=== PATIENT | male | born 1950 | race Caucasian/White ===

== ENCOUNTER 2020-05-30 12:34 | Observation (INO) ==
[2020-05-30] MEDS ORDERED: Naloxone 0.4 MG/ML INJ IVP PRN ×2 (15:34→16:28)
[2020-05-30 15:58] LABS: Basophils # 0.1 K/mcL (0.0-0.2); Basophils % 0.6 %; Eosinophils # 0.4 K/mcL (0.0-0.6); Eosinophils % 4.3 %; Hematocrit 31.2 % (37.5-50.1); Hemoglobin 9.9 g/dL (12.9-16.9); Immature Granulocytes % 0.2 % (0-4); Lymphocytes # 1.6 K/mcL (0.6-4.6); Lymphocytes % 19.7 %; Mean Corpuscular HGB Conc 31.7 g/dL (31.6-35.5); Mean Corpuscular Volume 91.5 fL (83.0-100.0); Mean Platelet Volume 9.2 fL (9.4-12.4); Monocytes # 0.7 K/mcL (0.0-1.3); Monocytes % 8.4 %; Neutrophils # 5.4 K/mcL (1.6-8.9); Platelet Count 254 K/mcL (140-400); Red Blood Count 3.41 M/mcL (4.19-5.50); Red Cell Distribution Width 13.3 % (11.5-14.5); Segmented Neutrophils % 66.8 %; White Blood Count 8.1 K/mcL (4.3-11.1)
[2020-05-30 16:02] LABS: INR 1.2
[2020-05-30] MEDS ORDERED: Ondansetron 4 MG/2 ML VIAL IVP PRN (16:28)
[2020-05-30 16:31] LABS: BUN/Creatinine Ratio 23 (6-26); Blood Urea Nitrogen 28 mg/dL (8-23); Calcium 9.9 mg/dL (8.6-10.3); Carbon Dioxide 20 mEq/L (23-29); Chloride 111 mEq/L (98-107); Glucose 100 mg/dL (70-105); Osmolality,Calculated 294 (280-300); Sodium 139 mEq/L (136-145); Troponin I < 0.03 ng/mL (< 0.04); eGFR For African Americans > 60 (> 60); eGFR For Non-African Americans 58 (> 60)
[2020-05-30 16:54] LABS: Alanine Aminotransferase 14 Units/L (7-52); Albumin 4.4 g/dL (3.5-5.7); Albumin/Globulin Ratio 1.9 (1.1-2.2); Alkaline Phosphatase 36 Units/L (34-104); Aspartate Amino Transferase 16 Units/L (13-39); Bilirubin,Total 0.5 mg/dL (0.3-1.0); Globulin 2.3 g/dL (2.4-3.5); Magnesium 1.5 mg/dL (1.6-2.6); Total Protein 6.7 g/dL (6.4-8.9)
[2020-05-30] MEDS: Pantoprazole 40 MG VIAL IVP SCH ×2 (17:25→17:28)
[2020-05-30] MEDS: 0.9 % Sodium Chloride 1,000 ML IVC SCH (17:27)
[2020-05-31 05:44] LABS: Basophils # 0.1 K/mcL (0.0-0.2); Basophils % 0.8 %; Eosinophils # 0.3 K/mcL (0.0-0.6); Eosinophils % 3.9 %; Hematocrit 31.3 % (37.5-50.1); Hemoglobin 9.7 g/dL (12.9-16.9); Immature Granulocytes % 0.3 % (0-4); Lymphocytes # 1.5 K/mcL (0.6-4.6); Lymphocytes % 20.6 %; Mean Corpuscular Hemoglobin 27.7 pg (28.0-33.3); Mean Corpuscular Volume 89.4 fL (83.0-100.0); Mean Platelet Volume 9.1 fL (9.4-12.4); Monocytes % 13.3 %; Neutrophils # 4.4 K/mcL (1.6-8.9); Platelet Count 231 K/mcL (140-400); Red Cell Distribution Width 13.2 % (11.5-14.5); Segmented Neutrophils % 61.1 %; White Blood Count 7.1 K/mcL (4.3-11.1)
[2020-05-31] MEDS: 0.9 % Sodium Chloride 1,000 ML IVC SCH ×2 (06:17→22:36)
[2020-05-31] MEDS: Pantoprazole 40 MG VIAL IVP SCH ×2 (06:21→18:09)
[2020-05-31 06:30] LABS: BUN/Creatinine Ratio 18 (6-26); Blood Urea Nitrogen 20 mg/dL (8-23); Calcium 9.5 mg/dL (8.6-10.3); Carbon Dioxide 19 mEq/L (23-29); Chloride 112 mEq/L (98-107); Glucose 66 mg/dL (70-105); Magnesium 1.9 mg/dL (1.6-2.6); Osmolality,Calculated 289 (280-300); Potassium 3.6 mEq/L (3.5-5.1); Sodium 139 mEq/L (136-145); eGFR For African Americans > 60 (> 60); eGFR For Non-African Americans > 60 (> 60)
[2020-05-31] MEDS ORDERED: Lidocaine -MPF 2% 2 ML VIAL ONE (13:09)
[2020-05-31] MEDS ORDERED: *HR* Propofol 200 MG/20 ML VIAL IVP ONE (14:56)
[2020-06-01 02:36] LABS: Hematocrit 29.2 % (37.5-50.1); Mean Corpuscular HGB Conc 30.8 g/dL (31.6-35.5); Mean Corpuscular Volume 90.7 fL (83.0-100.0); Mean Platelet Volume 9.2 fL (9.4-12.4); Platelet Count 239 K/mcL (140-400); Red Blood Count 3.22 M/mcL (4.19-5.50); Red Cell Distribution Width 13.2 % (11.5-14.5); White Blood Count 8.2 K/mcL (4.3-11.1)
[2020-06-01] MEDS: Pantoprazole 40 MG VIAL IVP SCH (05:12)
[2020-06-01] MEDS ORDERED: Nitroglycerin 0.4 MG TAB.SUBL SL PRN (07:35)
[2020-06-01] MEDS ORDERED: cloNIDine HCL 0.1 MG TABLET PO SCH (09:00)
[2020-06-01] MEDS ORDERED: Metoprolol 100 MG TABLET PO SCH (09:00)
[2020-06-01] MEDS ORDERED: Fenofibrate 54 MG TABLET PO SCH (09:00)
[2020-06-01] MEDS ORDERED: BuPROPion SR (12 HR) 150 MG TABLET PO SCH (09:00)
[2020-06-01] MEDS ORDERED: Aspirin 81 MG TAB.CHEW PO SCH (10:30)
[2020-06-01 12:24] VITALS: BP 150/70
== END 2020-06-01 14:20 | disposition home or self-care (01) ==
LOC: 3ANU → SUATTDRO 14:10
PROVIDERS: ADMIT Student in an Organized Health Care Education/Training Program; ATTEND General Practice
PROC: ENDOCCB (2020-05-31 18:25)
PROC: ENDOEBX (2020-05-31 18:25)